=== PATIENT | male | born 1975 | race Caucasian/White ===

== ENCOUNTER 2023-08-17 09:32 | Emergency (ER) | payer OTHER ==
[~2023-08-17] VITALS: Ht 190.5 cm; Wt 102.8 kg
[2023-08-17] MEDS ORDERED: FLUVOXAMINE MAL25 MG PO (09:55)
[2023-08-17] MEDS ORDERED: KLONOPIN0.5 MG PO (09:56)
[2023-08-17 13:07] VITALS: BP 135/84
== END 2023-08-17 13:08 | disposition home or self-care (01) ==
LOC: ED 09:32
DX: R51.9 Headache, unspecified (principal); F41.9 Anxiety disorder, unspecified; F32.A Depression, unspecified; Z79.899 Other long term (current) drug therapy
CPT/HCPCS: 70450; 99284-25